=== PATIENT | female | born 1985 | race Caucasian/White ===

== ENCOUNTER 2019-07-03 09:02 | Day surgery (SDC) | payer OTHER ==
[~2019-07-03] VITALS: Ht 167.6 cm; Wt 84.4 kg
[~2019-07-03 09:02] MED LIST: ACET-6134 PO; CARB200T4 PO
[2019-07-03] MEDS ORDERED: KEP500 PO (09:52)
[2019-07-03] MEDS ORDERED: LAM200 PO (09:52)
[2019-07-03] MEDS ORDERED: MIDAZOLAM 2 MG/2 ML VIAL ONE (10:47)
[2019-07-03] MEDS ORDERED: fentaNYL 0.05 MG/ML VIAL ONE (10:47)
== END 2019-07-03 12:35 | disposition home or self-care (01) ==
LOC: MMU 09:02 → MOR 09:02
PROVIDERS: ATTEND Internal Medicine Gastroenterology
DX: K31.89 Other diseases of stomach and duodenum (principal); G40.909 Epilepsy, unspecified, not intractable, without status epilepticus; E66.9 Obesity, unspecified; R11.2 Nausea with vomiting, unspecified; Z98.890 Other specified postprocedural states; Z79.899 Other long term (current) drug therapy
CPT/HCPCS: 36415; 43239; 81025; 86677; J2250; J3010

== ENCOUNTER 2020-04-09 01:01 | Emergency (ER) | payer OTHER ==
[~2020-04-09] VITALS: Ht 167.6 cm; Wt 94.3 kg
[~2020-04-09 01:01] MED LIST changes: +KEP500 PO; +LAM200 PO
[2020-04-09 01:06] VITALS: BP 117/74
--- NOTE | 2020-04-09 01:12 | NUR ---
PT AMBULATED TO BED 06 WITH STEADY GAIT.
--- NOTE | 2020-04-09 01:15 | NUR ---
35 YO F BIB SELF FOR C/C OF 8/10 TENSION COLON X1 WEEK. PT STATES HER PAIN IS IN BILATERAL TEMPORAL AREA. PT STATES SHE HAS BEEN FEELING LIGHTHEADED AND DIZZY WITH "LITTLE BLACK DOTS" IN HER VISION. PT TOOK 750 MG OF IBUPROFEN AT 5PM YESTERDAY WITHOUT RELIEF OF SYMPTOMS. PT STATES SHE IS NAUSEOUS WITHOUT VOMITING AND DIARRHEA. DENIES FEVER, COUGH, SOB. BED LOCKED AND IN LOWEST POSITION. SIDE RAILS X2. SEIZURE PADS IN PLACE. MED HX: EPILEPSY RX: LAMOTRIGINE, carbamazepine NKA
[2020-04-09] MEDS ORDERED: diphenhydrAMINE 50 MG/ML VIAL IM ONE (01:30)
[2020-04-09] MEDS ORDERED: PROCHLORPERAZINE 10 MG/2 ML VIAL IM ONE (01:30)
--- NOTE | 2020-04-09 01:49 | NUR ---
PTS COLON PAIN HAS REDUCED FROM 8/10 TO 0/10 POST IM ADMINSTRATION
[2020-04-09 01:50] VITALS: BP 117/74
--- NOTE | 2020-04-09 01:50 | NUR ---
Patient discharged with v/s stable. Written and verbal after care instructions given and explained. Patient alert, oriented and verbalized understanding of instructions. Ambulatory with steady gait. All questions addressed prior to discharge. ID band removed. Patient advised to follow up with PMD. Rx of TRAMADOL, MOTRIN given. Patient educated on indication of medication including possible reaction and side effects. Opportunity to ask questions provided and answered.
== END 2020-04-09 01:50 | disposition home or self-care (01) ==
LOC: MED 01:01
DX: G44.209 Tension-type headache, unspecified, not intractable (principal); R56.9 Unspecified convulsions; Z79.899 Other long term (current) drug therapy
CPT/HCPCS: 96372; 99284; J0780; J1200

== ENCOUNTER 2020-09-21 10:51 | Emergency (ER) | payer OTHER ==
[~2020-09-21] VITALS: Ht 182.9 cm; Wt 96.6 kg
[2020-09-21 10:56] VITALS: BP 111/74
--- NOTE | 2020-09-21 11:11 | NUR ---
35YO F BIB SELF C/O UPPER LEFT THIGH BURN FROM COOKING OIL 3 DAYS AGO. PT COMPLAINS OF PAIN 5/10. NO MEDICATIONS TAKEN, SELF-PRESCRIBED ALEX GEL APPLIED. PT WENT TO [facility] TODAY AND WAS REFERRED TO ER FOR MANAGEMENT. IN ER, VSS. LEFT UPPER THIGH WITH VISIBLE ERYTHEMA AND SCALDING FROM BURN. PEDAL PULSES 5/5. PT SITTING ON BED COMFORTABLY. ERMD MADE AWARE OF PT STATUS. PMH: EPILEPSY- LAST SEIZURE 2 YRS AGO MEDS: CARBAMAZEPINE, LAMOTRIDINE, LEVETIRACETAM NKA
[2020-09-21] MEDS ORDERED: KETOROLAC 60 MG/2 ML VIAL IM ONE (11:15)
[2020-09-21] MEDS ORDERED: SILVER SULFADIAZINE 1% 50 GM JAR TP ONE (11:15)
[2020-09-21] MEDS ORDERED: cephALEXin 500 MG CAP PO ONE (11:15)
[2020-09-21] MEDS ORDERED: SULFAMETH/TRIMETH DS 800/160MG 1 TAB PO ONE (11:15)
--- NOTE | 2020-09-21 11:45 | NUR ---
Patient discharged with v/s stable. Written and verbal after care instructions given and explained. Patient alert, oriented and verbalized understanding of instructions. Ambulatory with steady gait. All questions addressed prior to discharge. ID band removed. Patient advised to follow up with PMD. Rx of KEFLEX, BACTRIM, NORCO, SILVER SULFA given. Patient educated on indication of medication including possible reaction and side effects. Opportunity to ask questions provided and answered.
[2020-09-21 11:49] VITALS: BP 111/74
== END 2020-09-21 11:45 | disposition home or self-care (01) ==
LOC: MED 10:51
DX: T24.212A Burn of second degree of left thigh, initial encounter (principal); R56.9 Unspecified convulsions; Z48.00 Encounter for change or removal of nonsurgical wound dressing; Z79.899 Other long term (current) drug therapy
CPT/HCPCS: 90471; 90715; 96372; 99284; J1885

== ENCOUNTER 2023-08-10 17:39 | Emergency (ER) | payer OTHER ==
[~2023-08-10] VITALS: Ht 162.6 cm; Wt 72.6 kg
[~2023-08-10 17:39] MED LIST changes: +ACET-10509 PO; -ACET-6134 PO
[2023-08-10 17:46] VITALS: BP 122/72; PULSE 67; RESP 15; TEMP 97.6; O2SAT 99
[2023-08-10] MEDS ORDERED: ATA25 PO (20:37)
[2023-08-10 21:44] VITALS: BP 107/62; PULSE 55; RESP 18; O2SAT 96
== END 2023-08-10 21:44 | disposition home or self-care (01) ==
LOC: MED 17:39
DX: R00.2 Palpitations (principal); F41.9 Anxiety disorder, unspecified; Z86.69 Personal history of other diseases of the nervous system and sense organs; Z79.899 Other long term (current) drug therapy
CPT/HCPCS: 93005; 99283